=== PATIENT | female | born 1975 | race Caucasian/White ===

== ENCOUNTER 2017-03-16 11:07 | Emergency (ER) | payer OTHER ==
[~2017-03-16] VITALS: Ht 162.6 cm; Wt 147.9 kg
[2017-03-16 11:53] LABS: ABSOLUTE EOSINOPHILS 0.2 thou/uL (0.0-0.7); ABSOLUTE LYMPHOCYTES 2.3 thou/uL (0.8-5.3); ABSOLUTE MONOCYTES 0.7 thou/uL (0.0-1.2); ABSOLUTE NEUTROPHILS 5.5 thou/uL (1.6-8.1); BASOPHILS 0.6 %; EOSINOPHILS 2.6 %; HEMATOCRIT 33.4 % (37.0-47.0); HEMOGLOBIN 10.4 gm/dL (12.0-15.0); LYMPHOCYTES 26.2 %; MCH 22.7 pg (26.0-34.0); MCHC 31.1 g/dL (28.0-37.0); MONOCYTES 8.2 %; MPV 8.7 fl. (7.2-11.1); NUCLEATED RBCS 0 /100WBC; PLATELET COUNT* 263 thou/uL (150-400); POLYS 62.4 %; RBC 4.58 mil/uL (4.20-5.00); WBC 8.8 thou/uL (4.0-11.0)
[2017-03-16 12:00] LABS: CALCIUM 8.7 mg/dL (8.5-10.1); CREATININE 0.9 mg/dL (0.6-1.3); POTASSIUM 3.9 mmol/L (3.5-5.1)
[2017-03-16 12:10] LABS: ALBUMIN 3.4 g/dL (3.4-5.0); TOTAL BILIRUBIN 0.3 mg/dL (<0.1-1.0)
[2017-03-16 12:22] LABS: PLATELET ESTIMATE ADEQUATE
[2017-03-16 12:23] LABS: ANISOCYTOSIS 1+; HYPOCHROMASIA 1+; MICROCYTES 1+
[2017-03-16] MEDS ORDERED: TESSALON PERLE100 MG PO (13:29)
[2017-03-16] MEDS ORDERED: PREDNISONE 10 M10 MG PO (13:29)
[2017-03-16 13:52] VITALS: BP 142/66
== END 2017-03-16 13:53 | disposition home or self-care (01) ==
LOC: M.ERS 11:07
PROVIDERS: Physician Assistant
DX: R06.00 Dyspnea, unspecified (principal); J04.0 Acute laryngitis

== ENCOUNTER → 2017-08-23 | Outpatient (CLI) | payer OTHER ==
[~2017-08-23] MED LIST: PREDNISONE 10 M10 MG PO; TESSALON PERLE100 MG PO
== END ==
LOC: M.RAD 09:42
DX: Z12.31 Encounter for screening mammogram for malignant neoplasm of breast (principal); M77.32 Calcaneal spur, left foot

== ENCOUNTER 2018-02-27 22:34 | Inpatient (IN) | payer OTHER ==
[~2018-02-27] VITALS: Ht 162.6 cm; Wt 154.2 kg
[2018-02-27 22:41] VITALS: BP 157/103
[2018-02-27 23:21] LABS: ABSOLUTE BASOPHILS 0.1 thou/uL (0.0-0.2); ABSOLUTE EOSINOPHILS 0.1 thou/uL (0.0-0.7); ABSOLUTE LYMPHOCYTES 2.8 thou/uL (0.8-5.3); ABSOLUTE MONOCYTES 0.6 thou/uL (0.0-1.2); ABSOLUTE NEUTROPHILS 4.7 thou/uL (1.6-8.1); BASOPHILS 0.6 %; EOSINOPHILS 1.7 %; HEMATOCRIT 37.4 % (37.0-47.0); HEMOGLOBIN 12.2 gm/dL (12.0-15.0); LYMPHOCYTES 33.6 %; MCHC 32.5 g/dL (28.0-37.0); MCV 80.1 fL (80.0-100.0); MONOCYTES 7.4 %; MPV 8.6 fl. (7.2-11.1); NUCLEATED RBCS 0 /100WBC; PLATELET COUNT* 234 thou/uL (150-400); POLYS 56.7 %; RBC 4.67 mil/uL (4.20-5.00); RDW-CV 16.4 % (10.5-14.5); WBC 8.2 thou/uL (4.0-11.0)
[2018-02-27 23:25] LABS: ANION GAP 10 mmol/L (7-16); BUN 18 mg/dL (7-18); CALCIUM 8.9 mg/dL (8.5-10.1); CHLORIDE 103 mmol/L (98-107); CO2 25 mmol/L (21-32); CREATININE 0.9 mg/dL (0.6-1.3); GLUCOSE 92 mg/dL (70-99); POTASSIUM 3.7 mmol/L (3.5-5.1); SODIUM 138 mmol/L (136-145)
[2018-02-27 23:29] LABS: APTT 27.1 Seconds (25.0-31.3); PROTIME 10.3 Seconds (9.20-11.50)
[2018-02-27 23:45] LABS: ALBUMIN 3.2 g/dL (3.4-5.0); ALKALINE PHOSPHATASE 69 U/L (46-116); CK-MB MASS 1.2 ng/mL (<0.5-3.6); LIPASE 136 U/L (73-393); MAGNESIUM 1.7 mg/dL (1.8-2.4); NT-PRO BRAIN NAT PEPTIDE 166 pg/mL (<300); SGOT 16 U/L (15-37); SGPT 18 U/L (30-65); TOTAL BILIRUBIN 0.2 mg/dL (<0.1-1.0); TOTAL PROTEIN 7.3 g/dL (6.4-8.2); TROPONIN-I LEVEL <0.06 ng/mL (<0.06)
[2018-02-28] VITALS (7 sets, daily range): BP systolic 113–144; BP diastolic 68–96
--- NOTE | 2018-02-28 05:06 | NUR ---
ASSUMED PT CARE AT 0200. PT IS A&OX4, PT IS TRACING NSR ON THE MONITOR,ON RA SATTING MID TO HIGH 90'S. PT IS UP AD LUDA AND APPEARS STABLE ON HER FEEET. BED IN LOW POSITION, CALL LIGHT IN REACH. HOURLY ROUDNING COMPLETED FOR PT SAFETY.
--- NOTE | 2018-02-28 11:03 | NUR ---
MET WITH PT TO DISCUSS HOME SITUATION/DC PLANNING. PT LIVES WITH S/O, IS INDEPENDENT AND ACTIVE. WORKS OUTSIDE THE HOME. USES NO EQUIPMENT. PT DENIES ANY DC NEEDS. WILL FOLLOW
[2018-02-28 12:03] LABS: CHOLESTEROL 191 mg/dL (<200); HDL CHOLESTEROL 46 mg/dL (>40); LDL CHOLESTEROL 121 mg/dL (<100); TC:HDL 4.2 Ratio (Not establshd); TRIGLYCERIDE 124 mg/dL (<150); VLDL 25 mg/dL (<40)
[2018-02-28 12:04] LABS: SERUM ASSESSMENT Clear
[2018-02-28] MEDS ORDERED: LIPITOR 20 MG T20 M1 PO (15:49)
[2018-02-28] MEDS ORDERED: METOPROLOL SUCC25 M1 PO (15:49)
--- NOTE | 2018-02-28 16:57 | EKG ---
[place] [address] ELECTROCARDIOGRAM REPORT Name: RICARDO MALIK Room: [address] ADM IN M.R.#: [id number] Admission: 02/28/18 Attend Phys: Fabiola Fang Discharge: Date of : 71 Report #: [id number] THIS REPORT FOR: //name// [facility] ED Test Date: 2018-02-27 Test Time: 22:53:08 Pat Name: RICARDO MALIK Department: Room: [facility] Gender: F Technical Professional: Isrrael GATES : 1975 Requested By: Hussain Arriaga Order Number: [id number] MD: Jan Rios Measurements Intervals [place] Rate: 82 P: 41 [place]: 145 QRS: 8 QRSD: 95 T: 46 QT: 399 QTc: 466 Interpretive Statements Sinus rhythm Abnormal R-wave progression, early transition No previous ECG available for comparison Electronically Signed On 02-28-2018 16:57:40 METAL COATER OPERATOR by Jan Rios [email or web address] <ELECTRONICALLY SIGNED> By: Jan Rios MD, [facility] 02/28/18 1657 2253 225 Jan Rios MD, FAC /EPI
--- NOTE | 2018-02-28 16:58 | EKG ---
[place] [address] ELECTROCARDIOGRAM REPORT Name: MALIKRICARDO Burch Room: [address] ADM IN M.R.#: [id number] Admission: 02/28/18 Attend Phys: Fabiola Fang Discharge: Date of : 71 Report #: [id number] THIS REPORT FOR: //name// [facility] ED Test Date: 2018-02-27 Test Time: 23:27:27 Pat Name: RICARDO MALIK Department: Room: [facility] Gender: F [place]: : 1975 Requested By: Hussain Arriaga Order Number: [id number] MD: Jan Rios Measurements Intervals [place] Rate: 161 P: 0 [place]: QRS: 20 QRSD: 87 T: 30 QT: 322 QTc: 527 Interpretive Statements Sinus tachycardia Atrial premature complex Baseline wander in lead(s) III,V5,V6 No previous ECG available for comparison Electronically Signed On 02-28-2018 16:58:07 CAR GROOMER by Jan Rios [email or web address] <ELECTRONICALLY SIGNED> By: Jan Rios MD, [facility] 02/28/18 1658 2327 26 Jan Rios MD, [facility] /EPI
--- NOTE | 2018-02-28 17:01 | EKG ---
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
--- NOTE | 2018-02-28 17:04 | EKG ---
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: [facility] : 1975 Requested By: Hussain Arriaga Order Number: [id number] Jacque MD: Jan Rios Measurements Intervals [place] Rate: 113 P: 49 [place]: 54 QRS: 24 QRSD: 95 T: 37 QT: 445 QTc: 611 Interpretive Statements Sinus rhythm Atrial premature complexes in couplets Short [place] interval Abnormal R-wave progression, early transition No previous ECG available for comparison Electronically Signed On 02-28-2018 17:04:37 TESTER SOUND by Jan Rios [email or web address] <ELECTRONICALLY SIGNED> By: Jan Rios MD, [facility] 02/28/18 1704 1312 131 Jan Rios MD, [facility] /EPI
--- NOTE | 2018-02-28 17:05 | EKG ---
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 Claims Manager: [facility] : 1975 Requested By: Toney Ascencio Order Number: [id number] Jacque MD: Jan Rios Measurements Intervals [place] Rate: 123 P: 44 MD: 144 QRS: 24 QRSD: 96 T: 53 QT: 453 QTc: 648 Interpretive Statements Sinus rhythm Premature atrial complexes present Baseline wander in lead(s) V5 No previous ECG available for comparison Electronically Signed On 02-28-2018 17:05:02 WILDLAND FIRE FIGHTER by Jan Rios [email or web address] <ELECTRONICALLY SIGNED> By: Jan Rios MD, [facility] 02/28/18 1705 12 12 Jan Rios MD, [facility] /EPI
--- NOTE | 2018-02-28 17:12 | 2DMMODE ---
[place] [address] 2 D/M-MODE ECHOCARDIOGRAM Name: KINGRICARDO Isrrael Room: [address] IN [facility]#: [id number] Admission: 02/28/18 Attend Phys: Toney Ascencio Discharge: Date of : 71 Date of Service: 02/28/18 1712 Report #: [id number] THIS REPORT FOR: //name// APPROVED REPORT Study performed: 02/28/2018 15:34:43 EXAM: Comprehensive 2D, Doppler, and color-flow Echocardiogram Patient Location: In-Patient Room #: [facility] Status: routine BSA: 2.45 HR: 71 bpm BP: 144/96 mmHg Rhythm: NSR Other Information Study Quality: Good Indications SVT 2D Dimensions IVSd: 12.73 (7-11mm) LVOT Diam: 21.38 (18-24mm) LVDd: 50.24 mm PWd: 11.42 (7-11mm) Ascending Ao: 34.55 (22-36mm) LVDs: 26.52 (25-40mm) Aortic Root: 29.36 mm Volumes Left Atrial Volume (Systole) LA ESV Index: 24.10 mL/m2 Aortic Valve AoV Peak Donald.: 1.45 m/s AO Peak Gr.: 8.46 mmHg LVOT Max P.49 mmHg AO Mean Gr.: 4.69 mmHg LVOT Mean P.87 mmHg LVOT Max V: 1.27 m/s AO V2 VTI: 30.18 cm LVOT Mean V: 0.76 m/s VERITO (VTI): 3.06 cm2 LVOT V1 VTI: 25.72 cm Mitral Valve E/A Ratio: 1.42 MV Decel. Time: 205.12 ms MV E Max Donald.: 0.81 m/[place] [address] 2 D/M-MODE ECHOCARDIOGRAM Name: ELLA MALIKE Isrrael Room: [address] IN [facility].#: [id number] Admission: 02/28/18 Attend Phys: Toney Ascencio Discharge: Date of : 71 Date of Service: 02/28/18 1712 Report #: [id number] MV PHT: 59.49 ms MVA (PHT): 3.70 cm2 TDI E/Lateral E': 5.40 E/Medial E': 6.75 Medial E' Donald.: 0.12 m/s Lateral E' Donald.: 0.15 m/s Pulmonary Valve PV Peak Donald.: 1.11 m/s PV Peak Gr.: 4.92 mmHg Left Ventricle The left ventricle is normal size. There is normal LV segmental wall motion. There is normal left ventricular wall thickness. Left ventricular systolic function is normal. LVEF is 55-60%. The left ventricular diastolic function is normal. Right Ventricle The right ventricle is normal size. The right ventricular systolic function is normal. Atria The left atrium size is normal. The right atrium size is normal. Aortic Valve The aortic valve is normal in structure. No aortic regurgitation is present. There is no aortic valvular stenosis. Mitral Valve The mitral valve is normal in structure. There is no mitral valve regurgitation noted. No evidence of mitral valve stenosis. Tricuspid Valve The tricuspid valve is normal in structure. Unable to assess PA pressure. Trace tricuspid regurgitation. Pulmonic Valve The pulmonary valve is normal in structure. There is no pulmonic valvular regurgitation. Great Vessels The aortic root is normal in size. IVC is normal in size and collapses >50% with inspiration[place] [address] 2 D/M-MODE ECHOCARDIOGRAM Name: RICARDO MALIK Room: [address] IN [facility]#: [id number] Admission: 02/28/18 Attend Phys: Toney Ascencio Discharge: Date of : 71 Date of Service: 02/28/18 1712 Report #: [id number] There is no pericardial effusion. <Conclusion> The left ventricle is normal size. There is normal left ventricular wall thickness. Left ventricular systolic function is normal. LVEF is 55-60%. The left ventricular diastolic function is normal. IVC is normal in size and collapses >50% with inspiration. <ELECTRONICALLY SIGNED> By: Jan Rios MD, FACC 02/28/181711 11 11 Jan Rios MD, FACC /INF
== END 2018-02-28 18:35 | disposition home or self-care (01) | DRG 309 ==
LOC: M.ERS 22:34 → M.2W 02-28 → M.TBA-ER 02-28 → M.2W 02-28 01:30
PROVIDERS: Family Medicine; Nurse Practitioner Family; ADMIT Internal Medicine
DX: I47.1 Supraventricular tachycardia (principal); Z68.43 Body mass index [BMI] 50.0-59.9, adult; K21.9 Gastro-esophageal reflux disease without esophagitis; R03.0 Elevated blood-pressure reading, without diagnosis of hypertension; E66.01 Morbid (severe) obesity due to excess calories; F17.210 Nicotine dependence, cigarettes, uncomplicated; Z23 Encounter for immunization

== ENCOUNTER → 2018-08-07 | Outpatient (CLI) | payer OTHER ==
[~2018-08-07] MED LIST changes: +LIPITOR 20 MG T20 M1 PO; +METOPROLOL SUCC25 M1 PO
== END ==
LOC: M.RAD 16:47
DX: M79.89 Other specified soft tissue disorders (principal); M79.645 Pain in left finger(s)

== ENCOUNTER → 2018-10-06 | Day surgery (SDC) | payer OTHER ==
[~2018-10-06] MED LIST changes: +ASPIR 8181 MG PO; +FLECAINIDE ACET50 M1 PO; +OMEPRAZOLE 20 M20 M1 PO; +TOPROL XL50 MG PO
--- NOTE | ~2018-10-06 | PROC ---
[address] [place] [address] PROCEDURE REPORT Name: RICARDO MALIK Room: [facility]#: [id number] Admission: 10/06/18 Attend Phys: Hair Aldana MD Discharge: Date of : 71 Report #: [id number] THIS REPORT FOR: //name// For GI report, please see the Provation report in Perceptive 7 content. By: 0609Medical Records Staff PAULINO /ALIX
[2018-10-06 09:06] LABS: CALCIUM 8.4 mg/dL (8.5-10.1); CREATININE 0.8 mg/dL (0.6-1.3); POTASSIUM 3.7 mmol/L (3.5-5.1)
[2018-10-06 09:11] LABS: HEMATOCRIT 38.9 % (37.0-47.0); HEMOGLOBIN 12.8 gm/dL (12.0-15.0); MCH 26.3 pg (26.0-34.0); MCHC 32.8 g/dL (28.0-37.0); MCV 80.1 fL (80.0-100.0); MPV 8.3 fl. (7.2-11.1); RBC 4.85 mil/uL (4.20-5.00); RDW-CV 15.9 % (10.5-14.5)
--- NOTE | 2018-10-06 11:53 | EKG ---
[place] [address] ELECTROCARDIOGRAM REPORT Name: RICARDO MALIK Room: [facility]#: [id number] Admission: 10/06/18 Attend Phys: Hair Aldana MD Discharge: Date of : 71 Report #: [id number] THIS REPORT FOR: //name// 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
--- NOTE | 2018-10-09 18:06 | PATH ---
[address] [address] PATHOLOGY RPT PROCEDURE Name: RICARDO MALIK Room: [facility]#: [id number] Admission: 10/06/18 Date of : 71 Discharge: Report #: [id number] Path Case #: [id number] [facility] Accession Number: [id number] . 01 Material submitted: . PART A: stomach - GASTRIC BIOPSIES FOR H-PYLORI PART B: duodenum - DUODENAL BIOPSY FOR CELIAC PART C: colon - RANDOM COLON BIOPSIES FOR MICROSCOPIC COLITIS . 01 Clinical history: . Diarrhea, change in bowel habits . 02 Diagnosis: A. 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 . B. Duodenal biopsy: - Mild nonspecific active duodenitis without significant villous atrophy or intraepithelial lymphocytosis, negative for granulomas and dysplasia. . C. Random colon biopsies: - Hyperplastic lymphoid follicles (Peyer's patches) in otherwise normal colonic mucosa. (NAZ:dom; 10/09/2018) . Special stain on A: H. pylori immuno MBR/10/09/2018 . 02 Electronically signed: . Sal Sanon MD, Pathologist NPI- [id number] . 01 Gross description: . A. Received in formalin labeled "Ricardo Malik, gastric biopsy for H. pylori," and additionally labeled on the requisition as "biopsies," are 2 segments of fox soft tissue measuring 0.9 x 0.3 x 0.2 cm in aggregate dimensions and ranging from 0.4 to 0.5 cm in maximum dimension. The specimen is submitted entirely in cassette A1. . B. Received in formalin labeled "iRcardo Malik, duodenal biopsy for celiac," are 4 segments of fox soft tissue measuring 1.0 x 0.6 x 0.2 cm in aggregate dimensions and ranging from 0.3 to 0.4 cm in maximum dimension. The specimen is submitted entirely in cassette B1. . C. Received in formalin labeled "Ricardo Malik, [place] [address] PATHOLOGY RPT PROCEDURE Name: RICARDO MALIK Room: [facility].#: [id number] Admission: 10/06/18 Date of : 71 Discharge: Report #: [id number] Path Case #: [id number] microscopic colitis," are 5 segments of fox soft tissue measuring 0.9 x 0.7 x 0.2 cm in aggregate dimensions and ranging from 0.1 to 0.4 cm in maximum dimension. The specimen is submitted entirely in cassette C1. (TSD; 10/06/2018) TOB/TOB . 02 Pathologist provided ICD-10: K29.50, K29.80 . 02 CPT . 534212, 835428, 497480, V16070 Specimen Comment: A courtesy copy of this report has been sent to Specimen Comment: [phone], . Specimen Comment: Report sent to / DR LOCKHART Performed at: [address], [place] [id number] MD Samir Rowell MD Phone: [phone] Performed at: 02 [facility] [address], [place], [place] [id number] MD Sal Sanon MD Phone: [phone]
== END | disposition home or self-care (01) ==
LOC: M.SUR 07:56
PROVIDERS: Anesthesiology
DX: K63.89 Other specified diseases of intestine (principal); K29.50 Unspecified chronic gastritis without bleeding; K29.80 Duodenitis without bleeding; K31.9 Disease of stomach and duodenum, unspecified; I48.91 Unspecified atrial fibrillation; Z79.01 Long term (current) use of anticoagulants; Z79.899 Other long term (current) drug therapy; Z98.890 Other specified postprocedural states